=== PATIENT | female | born 1995 | race Caucasian/White ===

== ENCOUNTER 2016-10-19 05:28 | Day surgery (SDC) | payer MEDICAID ==
[2016-10-12 10:42] LABS: APPEARANCE,URINE CLOUDY; BILIRUBIN,URINE NEGATIVE (NEGATIVE); GLUCOSE, URINE NEGATIVE (NEGATIVE); KETONES,URINE NEGATIVE (NEGATIVE); LEUKOCYTE ESTERASE,URINE NEGATIVE (NEGATIVE); NITRITE,URINE NEGATIVE (NEGATIVE); PROTEIN,URINE NEGATIVE (NEGATIVE); URINE SPECIFIC GRAVITY 1.017; UROBILINOGEN,URINE NEGATIVE mg/dL (<2.0)
[2016-10-12 10:47] LABS: HEMOGLOBIN 14.8 g/dL (12.0-15.5); HGB HCT DIFFERENCE 1.4; MEAN CORPUSCULAR HEMOGLOBIN 30.3 pg (27.0-33.4); MEAN CORPUSCULAR HGB CONC 34.3 g/dL (32.0-36.0); MEAN CORPUSCULAR VOLUME 88 fl (80-97); RED BLOOD COUNT 4.87 10^6/uL (3.72-5.28); RED CELL DISTRIBUTION WIDTH 13.2 % (11.5-14.0); WHITE BLOOD COUNT 5.9 10^3/uL (4.0-10.5)
[~2016-10-19 05:28] MED LIST: CEFAZOLIN 1 GM/D5W RTU 1 GM/50 ML RTUPB IV PRN; LACTATED RINGERS 1000 ML IV PRN; LIDOCAINE 0.5% INJ-PF (5 MG/ML) 50 ML SDV SUBCUT PRN
[2016-10-19] MEDS ORDERED: MIDAZOLAM 2 MG/2 ML INJ ONE (06:48)
[2016-10-19] MEDS ORDERED: FENTANYL CITRATE INJ/PF 100 MCG/2 ML AMPUL ONE ×3 (06:48→08:37)
[2016-10-19] MEDS ORDERED: PROPOFOL INJ 200 MG/20 ML VIAL IV ONE (06:49)
[2016-10-19] MEDS ORDERED: ACETAMINOPHEN 100 ML IV ONE (06:49)
[2016-10-19] MEDS ORDERED: BUPIVACAINE HCL 0.25 % INJ/PF (2.5 MG/1 ML) 30 ML VIAL ONE (06:52)
[2016-10-19] MEDS ORDERED: ONDANSETRON HCL INJ/PF 4 MG/2 ML SDV ONE (07:22)
[2016-10-19] MEDS ORDERED: MORPHINE SULFATE 10 MG/ML INJ IV PRN (07:59)
[2016-10-19] MEDS ORDERED: PROMETHAZINE HCL INJ 25 MG/1 ML VIAL IV PRN ×2 (07:59)
[2016-10-19] MEDS ORDERED: MEPERIDINE HCL/PF INJ 25 MG/1 ML DISP.SYRIN IV PRN (07:59)
[2016-10-19] MEDS ORDERED: FENTANYL CITRATE INJ/PF 100 MCG/2 ML AMPUL IV PRN ×3 (07:59)
[2016-10-19] MEDS ORDERED: DIPHENHYDRAMINE HCL 50 MG/ML VIAL IV PRN (07:59)
--- NOTE | 2016-10-19 08:42 | Operative Report ---
Operative Report DATE OF SURGERY: 10/19/16 OPERATION: L/S BTL ANESTHESIA: GA PROCEDURE: Preoperative diagnosis: Multiparity, undesired future fertility, desires permanent sterilization Postoperative diagnosis: Same as above, Multiple Bilateral small ovarian cysts Bilateral Ovaries Procedure: Examination under anesthesia, Laparoscopic BTL with filschie clips [employer]: None Anesthesia: General Endotracheal tube Anesthesiologist: TOAN Vang Complications: None Estimated blood loss: [1 mL] IV fluids: [850 mL] Urine output: [40 mL] Specimens: [None] Findings: [Mall 6-8 week mobile uterus with no discrete adnexal masses noted. Minimal amount of scarring of the bladder to the anteriorly lower uterine segment noted. Omental adhesions to the anterior abdominal wall noted. Appendix not visualized, gallbladder appears enlarged the patient has no complaints consistent with cholelithiasis at this time. 2 Filshie clips applied on bilateral fallopian tubes. Multiple small physiologic-appearing cysts on bilateral ovaries but no discrete large cyst amenable to cystectomy. Appearance of the ovaries were consistent with polycystic ovarian syndrome.] Indications: [21-year-old G3 P 2013 who has been seen on several occasions over the last several months for counseling regarding sterilization. She declines OCPs IUD Depo-Provera NuvaRing etc. she reports that she has 2 boys and has completed her childbearing and is 100% sure that she does not want any further children. Her declines getting a vasectomy because her 's insurance will not cover it. She continues to strongly desire bilateral tubal ligation and permanent sterilization. Permanence of procedure reviewed with the patient on several occasions and the patient persists in her desire for permanent sterilization. Risks benefits and alternatives reviewed with patient and patient desires to proceed with planned procedure] Procedure: The patient was taken to the operating room where general anesthesia was obtained without difficulty. The patient was then examined under anesthesia with findings as noted above with a small anteverted uterus and possible left adnexal mass. She was then placed in dorsal supine lithotomy position and prepped and draped in the normal sterile fashion. A sponge stick placed in the patient's vagina for uterine manipulation. Attention was then turned to the patient's abdomen where a 5 mm infraumbilical skin incision was then made. The Veress needle was inserted in the usual fashion and intra- abdominal insufflation obtained in the usual usual fashion. The Optiview trocar with 0 laparoscope was then advanced without difficulty under direct visualization with the Optiview trocar. This was performed while tenting the abdominal wall and these will fashion. Intraperitoneal placement was confirmed by the direct visualization. Pneumoperitoneum was then obtained with approximately 4 L carbon dioxide gas. Survey of the patient's abdomen and pelvis revealed findings as noted above. A second skin incision was then made approximately 2 cm superior to the pubic symphysis in the midline. An 8 mm trocar was placed at the site. These incisions were made under direct visualization with the laparoscope. The right fallopian tube was then identified and followed out to the fimbriated end and Filshie clip's 2 was placed in the mid ampullary portion of the fallopian tube. This was procedure was repeated on the left fallopian tube with placement of 2 Filshie clips in the mid ampullary portion of the fallopian tube. All operative sites were visualized and noted to be hemostatic. The additional trochar then removed under direct visualization. Abdominal insufflation was then evacuated prior to removal of the last umbilical trocar. The skin at all trocar sites were closed with 3-0 Monocryl in a subcuticular fashion with overlying Dermabond. 1 g of Ancef was given prior to procedure. After completion of skin closure of the trocar sites attention was then turned to the vagina where the posterior uterine manipulator was removed. Sponge lap needle and instrument counts were correct 3. The patient tolerated the procedure well and was taken to the recovery area awake and in stable condition.
[2016-10-19] MEDS ORDERED: KETOROLAC TROMETHAMINE INJ/PF 30 MG/1 ML SDV ONE (08:54)
[2016-10-19] MEDS ORDERED: HYDROMORPHONE HCL INJ/PF 2 MG/ML AMPULE INJ PRN (09:14)
[2016-10-19] MEDS ORDERED: IBUPROFEN 800 MG TABLET PO PRN (09:14)
[2016-10-19] MEDS ORDERED: OXYCODONE-ACETAMINOPHEN 5-325 MG TABLET PO PRN ×2 (09:15)
[2016-10-19] MEDS ORDERED: ONDANSETRON HCL INJ/PF 4 MG/2 ML SDV IV PRN (09:16)
[2016-10-19] MEDS ORDERED: OXYCODONE-ACETAMINOPHEN 5-325 MG TABLET ONE (09:16)
[2016-10-19 10:12] VITALS: BP 124/79
[2016-10-19] MEDS ORDERED: NEOSTIGMINE METHYLSULFATE 10 MG/10 ML VIAL ONE (10:31)
[2016-10-19] MEDS ORDERED: VECURONIUM BROMIDE INJ 10 MG VIAL IV ONE (10:31)
[2016-10-19] MEDS ORDERED: SUCCINYLCHOLINE CHLORIDE INJ 200 MG/10 ML VIAL ONE (10:31)
[2016-10-19] MEDS ORDERED: DEXAMETHASONE SOD PHOSPHATE INJ 4 MG/1 ML VIAL ONE (10:31)
[2016-10-19] MEDS ORDERED: LIDOCAINE 2% INJ-PF (20 MG/ML) 10 ML AMPUL ONE (10:31)
[2016-10-19] MEDS ORDERED: GLYCOPYRROLATE INJ 0.4 MG/2 ML VIAL ONE (10:31)
== END 2016-10-19 10:10 | disposition home or self-care (01) ==
LOC: OROUT 05:28
PROVIDERS: ATTEND Student in an Organized Health Care Education/Training Program
PROC: 0UL74CZ Occlusion of Bilateral Fallopian Tubes with Extraluminal Device, Percutaneous Endoscopic Approach (ICD-10-PCS; principal; 2016-10-19 07:30)
DX: Z30.2 Encounter for sterilization (principal); N83.202 Unspecified ovarian cyst, left side; N83.201 Unspecified ovarian cyst, right side; K66.0 Peritoneal adhesions (postprocedural) (postinfection); J45.909 Unspecified asthma, uncomplicated; F17.210 Nicotine dependence, cigarettes, uncomplicated
CPT/HCPCS: 36415; 85027; 81005; 81025; 58671; J2250; J0690; J1100; J3010; J3490 ×3; J1885; J0330; J2405; S0020; J2704; J0131; 851